=== PATIENT | male | born 1990 | race Caucasian/White ===

== ENCOUNTER 2021-04-15 00:01 | Inpatient (IN) | payer OTHER ==
[~2021-04-15] VITALS: Ht 180.3 cm; Wt 84.5 kg
[2021-04-15] VITALS (28 sets, daily range): BP systolic 54–159; BP diastolic 33–89
[2021-04-15] MEDS ORDERED: NALOXONE HCL 0.4 MG/ML 1ML VIAL IV ONE ×4 (00:15→01:30)
[2021-04-15] MEDS ORDERED: SODIUM CHLORIDE 0.9% 1,000 ML IV ONE (00:45)
[2021-04-15 01:00] LABS: HEMATOCRIT. 50.1 % (42.0-52.0); HEMOGLOBIN. 16.6 g/dL (14.0-18.0); MEAN CORPUSCULAR HEMOGLOBIN 30.5 pg (28.0-32.0); MEAN CORPUSCULAR VOLUME 92.3 fL (80.0-94.0); PLATELET 371 x1000/uL (130-400); RED BLOOD CELL COUNT 5.43 mill/uL (4.7-6.1); RED CELL DISTRIBUTION WIDTH 13.2 % (11.6-14.6)
[2021-04-15] MEDS ORDERED: NALOXONE HCL 1 MG/ML 2ML VIAL IV NR (01:00)
[2021-04-15 01:09] LABS: CHLORIDE 107 mEq/L (98-107)
[2021-04-15 01:13] LABS: ETHANOL BLOOD < 10 mg/dL
[2021-04-15] MEDS ORDERED: DEXTROSE 50% WATER 50ML SYRINGE IV ONE (01:30)
[2021-04-15 02:22] LABS: CLARITY URINE CLOUDY (CLEAR); COLOR URINE YELLOW (YELLOW); KETONES URINE NEGATIVE (NEGATIVE); LEUKOCYTE ESTERASE URINE NEGATIVE (NEGATIVE); NITRITE URINE NEGATIVE (NEGATIVE); OCCULT BLOOD URINE 3+ (NEGATIVE); PROTEIN URINE 3+ (NEGATIVE); SPECIFIC GRAVITY URINE 1.015 (1.005-1.030); UROBILINOGEN URINE 0.2 E.U./dL (0.2-1.0)
[2021-04-15] MEDS ORDERED: ETOMIDATE 2MG/ML 10ML VIAL IV ONE (02:30)
[2021-04-15] MEDS ORDERED: SUCCINYLCHOLINE CHLORIDE 200MG/10ML IV ONE ×2 (02:30→09:00)
[2021-04-15] MEDS ORDERED: PROPOFOL 10MG/ML 100ML 100 ML IV SCH (02:30)
[2021-04-15 02:34] LABS: *AMPHETAMINES SCREEN URINE PRESUMTIVE POSITIVE (NEGATIVE); *BARBITURATES SCREEN URINE NEGATIVE (NEGATIVE); *BENZODIAZEPINES SCREEN URINE NEGATIVE (NEGATIVE); *COCAINE SCREEN URINE NEGATIVE (NEGATIVE); METHADONE URINE SCREEN NEGATIVE (NEGATIVE)
[2021-04-15 02:35] LABS: CANNABINOID URINE SCREEN NEGATIVE (NEGATIVE); OPIATES URINE SCREEN PRESUMTIVE POSITIVE (NEGATIVE); PHENCYCLIDINE URINE SCREEN NEGATIVE (NEGATIVE)
[2021-04-15] MEDS ORDERED: PIPERACILLIN/TAZ 3.375G PREMIX 50 ML IV ONE (02:45)
[2021-04-15] MEDS ORDERED: VANCOMYCIN 1 G PREMIX 200 ML IV SCH (02:45)
[2021-04-15 03:15] LABS: ATYPICAL LYMPHOCYTES 2
[2021-04-15 03:16] LABS: PLATELET ESTIMATE NORMAL
[2021-04-15] MEDS ORDERED: ONDANSETRON HCL 4MG/2ML INJ IV PRN (07:30)
[2021-04-15] MEDS ORDERED: DIPHENHYDRAMINE 50MG/ML VIAL IV PRN (07:30)
[2021-04-15] MEDS ORDERED: IPRATROPIUM/ALBUTEROL 0.5-3(2.5)MG/3ML NEB HHN PRN ×2 (07:30→09:30)
[2021-04-15] MEDS ORDERED: HYDRALAZINE 20MG/ML VIAL IV PRN (07:30)
[2021-04-15] MEDS ORDERED: GUAIFENESIN 200MG/10ML SUGAR FREE UDC PO PRN (07:30)
[2021-04-15] MEDS ORDERED: MAGNESIUM/ALUMINUM HYDROXIDE/SIMETHICONE 30ML UDC PO PRN (07:30)
[2021-04-15] MEDS ORDERED: LORAZEPAM 2MG/ML CPJ IV PRN (07:30)
[2021-04-15] MEDS ORDERED: CLONIDINE 0.1MG TABLET PO PRN (07:30)
[2021-04-15] MEDS ORDERED: DOCUSATE SODIUM 100MG CAPSULE PO PRN (07:30)
[2021-04-15] MEDS ORDERED: ACETAMINOPHEN 325MG TABLET PO PRN (07:30)
[2021-04-15] MEDS ORDERED: PIPERACILLIN/TAZ 3.375G PREMIX 50 ML IV SCH ×2 (08:00→22:00)
[2021-04-15] MEDS: DEXT 5%/0.45% NACL 1000ML 1,000 ML IV SCH ×2 (08:15→18:16)
[2021-04-15 08:45] LABS: BG BASE EXCESS -12.1 mmol/L (-2.0-2.0); BG CARBOXYHEMOGLOBIN 0.3 % (0.5-1.5); BG DEOXYHEMOGLOBIN 3.2 % (0.0-5.0); BG HCO3 ACT 17.2 mmol/L (22.0-26.0); BG METHEMOGLOBIN 0.7 % (0.0-1.5); BG OXYGEN SATURATION 96.8 % (92.0-98.5); BG OXYHEMOGLOBIN 95.8 % (94.0-97.0); BG PCO2 51.1 mmHg (35.0-45.0); BG PH 7.145 (7.350-7.450); BG PO2 92.5 mmHg (75.0-100.0); BG SAMPLE SITE RIGHT BRACHIAL; BG TOTAL HEMOGLOBIN 18.3 g/dL (12.0-18.0); BG VENT MODE VENT - AC
[2021-04-15] MEDS ORDERED: PROPOFOL 10MG/ML 100ML 100 ML IV PRN (09:30)
[2021-04-15] MEDS: ENOXAPARIN 40MG/0.4ML SYR SUBCUT SCH (10:15)
[2021-04-15] MEDS ORDERED: NOREPINEPHRINE 8MG/250ML PMX 250 ML IV ONE ×2 (12:30→12:39)
[2021-04-15 13:05] LABS: BG BASE EXCESS -8.6 mmol/L (-2.0-2.0); BG CARBOXYHEMOGLOBIN 0.2 % (0.5-1.5); BG DEOXYHEMOGLOBIN 0.3 % (0.0-5.0); BG HCO3 ACT 17.3 mmol/L (22.0-26.0); BG METHEMOGLOBIN 0.5 % (0.0-1.5); BG OXYGEN SATURATION 99.7 % (92.0-98.5); BG PCO2 37.8 mmHg (35.0-45.0); BG PH 7.279 (7.350-7.450); BG PO2 289.1 mmHg (75.0-100.0); BG SAMPLE SITE RIGHT RADIAL; BG VENT MODE VENT - AC
[2021-04-15] MEDS ORDERED: PHENYLEPHRINE 50 MG in DEXTROSE 5% WATER 250 ML IV PRN (13:45)
[2021-04-15] MEDS: SODIUM CHLORIDE 0.9% INJ 3ML FLUSH IVF SCH ×2 (14:00→22:00)
[2021-04-15] MEDS: IPRATROPIUM/ALBUTEROL 0.5-3(2.5)MG/3ML NEB HHN SCH ×3 (16:24→21:22)
[2021-04-15] MEDS: PANTOPRAZOLE SODIUM 40 MG/VIAL IV SCH (18:16)
[2021-04-15] MEDS: PIPERACILLIN/TAZOBACTAM 3.375G in DEXT 5% WATER 50ML IV SCH (18:16)
[2021-04-15 19:09] LABS: CREATINE KINASE MB FRACTION 466.8 ng/mL (0.5-3.6)
[2021-04-15] MEDS ORDERED: NOREPINEPHRINE 8 MG in DEXT 5% WATER 242 ML IV PRN (19:30)
[2021-04-15] MEDS ORDERED: NOREPINEPHRINE 8MG/250ML PMX 250 ML IV PRN (19:30)
[2021-04-15] MEDS ORDERED: ACETAMINOPHEN 650MG SUPP PR PRN (19:33)
[2021-04-15] MEDS: PHENYLEPHRINE 100 MG in DEXT 5% WATER 240 ML IV PRN (20:12)
[2021-04-15] MEDS: SODIUM BICARBONATE 100 MEQ in DEXTROSE 5% WATER 1,000 ML IV SCH (22:55)
[2021-04-16] VITALS (84 sets, daily range): BP systolic 87–161; BP diastolic 52–109
[2021-04-16 00:20] LABS: CREATINE KINASE MB FRACTION 160.4 ng/mL (0.5-3.6)
[2021-04-16] MEDS: IPRATROPIUM/ALBUTEROL 0.5-3(2.5)MG/3ML NEB HHN SCH ×6 (00:58→19:57)
[2021-04-16] MEDS ORDERED: IPRATROPIUM/ALBUTEROL 0.5-3(2.5)MG/3ML NEB HHN PRN (01:30)
[2021-04-16] MEDS: PHENYLEPHRINE 100 MG in DEXT 5% WATER 240 ML IV PRN (01:45)
[2021-04-16] MEDS ORDERED: ACETYLCYSTEINE 100MG/ML 10% VIAL 4ML INH SCH (02:00)
[2021-04-16] MEDS: SODIUM CHLORIDE 0.9% INJ 3ML FLUSH IVF SCH ×3 (05:11→21:49)
[2021-04-16] MEDS: PIPERACILLIN/TAZOBACTAM 3.375G in DEXT 5% WATER 50ML IV SCH ×3 (05:11→21:49)
[2021-04-16 05:53] LABS: HEMATOCRIT. 45.5 % (42.0-52.0); HEMOGLOBIN. 15.1 g/dL (14.0-18.0); MEAN CORPUSCULAR VOLUME 90.6 fL (80.0-94.0); MEAN PLATELET VOLUME 8.6 fl (7.4-10.4); PLATELET 244 x1000/uL (130-400); RED BLOOD CELL COUNT 5.02 mill/uL (4.7-6.1); RED CELL DISTRIBUTION WIDTH 13.5 % (11.6-14.6)
[2021-04-16 05:59] LABS: CHLORIDE 113 mEq/L (98-107)
[2021-04-16 06:14] LABS: CREATINE KINASE MB FRACTION 122.7 ng/mL (0.5-3.6)
[2021-04-16 06:20] LABS: HEPATITIS B SURFACE ANTIGEN NEGATIVE
[2021-04-16 06:52] LABS: CREATINE KINASE 10694 IU/L (39-308)
[2021-04-16 07:42] LABS: AMYLASE 1917 IU/L (25-115)
[2021-04-16 08:13] LABS: NUCLEATED RED BLOOD CELLS 1 /100 WBC; PLATELET ESTIMATE NORMAL
[2021-04-16 08:22] LABS: BG BASE EXCESS -7.5 mmol/L (-2.0-2.0); BG CARBOXYHEMOGLOBIN 0.3 % (0.5-1.5); BG DEOXYHEMOGLOBIN 4.4 % (0.0-5.0); BG FRACTION INSPIRED OXYGEN 30; BG METHEMOGLOBIN 0.5 % (0.0-1.5); BG OXYGEN SATURATION 95.6 % (92.0-98.5); BG OXYHEMOGLOBIN 94.8 % (94.0-97.0); BG PCO2 42.2 mmHg (35.0-45.0); BG PH 7.272 (7.350-7.450); BG PO2 77.9 mmHg (75.0-100.0); BG SAMPLE SITE LEFT RADIAL; BG TOTAL HEMOGLOBIN 15.9 g/dL (12.0-18.0); BG TOTAL RESPIRATORY RATE 18 b/min; BG VENT MODE VENT - AC
[2021-04-16] MEDS: PANTOPRAZOLE SODIUM 40 MG/VIAL IV SCH (09:53)
[2021-04-16] MEDS: ENOXAPARIN 40MG/0.4ML SYR SUBCUT SCH (09:54)
[2021-04-16] MEDS: SODIUM BICARBONATE 100 MEQ in DEXTROSE 5% WATER 1,000 ML IV SCH ×2 (11:15→21:30)
[2021-04-16] MEDS ORDERED: FLUMAZENIL 0.1 MG/ML 5ML VIAL IV ONE (14:30)
[2021-04-17] VITALS (83 sets, daily range): BP systolic 82–123; BP diastolic 45–69
[2021-04-17] MEDS: IPRATROPIUM/ALBUTEROL 0.5-3(2.5)MG/3ML NEB HHN SCH ×5 (00:25→16:15)
[2021-04-17] MEDS: PIPERACILLIN/TAZOBACTAM 3.375G in DEXT 5% WATER 50ML IV SCH ×2 (06:00→15:02)
[2021-04-17] MEDS: SODIUM CHLORIDE 0.9% INJ 3ML FLUSH IVF SCH ×2 (06:00→14:04)
[2021-04-17 06:06] LABS: BASOPHILS % 0.1 % (0.0-2.0); EOSINOPHILS % 0.1 % (0.0-5.0); HEMATOCRIT. 42.2 % (42.0-52.0); LYMPHOCYTES % 12.2 % (20.0-50.0); MEAN CORPUSCULAR HEMOGLOBIN 30.2 pg (28.0-32.0); MEAN CORPUSCULAR VOLUME 90.6 fL (80.0-94.0); MEAN PLATELET VOLUME 8.7 fl (7.4-10.4); MONOCYTES % 6.3 % (2.0-8.0); NEUTROPHILS % 81.3 % (40.0-76.0); PLATELET 215 x1000/uL (130-400); RED BLOOD CELL COUNT 4.65 mill/uL (4.7-6.1); RED CELL DISTRIBUTION WIDTH 13.5 % (11.6-14.6)
[2021-04-17] MEDS ORDERED: DEXTROSE 5% WATER 1,000 ML IV SCH (08:15)
[2021-04-17] MEDS: PANTOPRAZOLE SODIUM 40 MG/VIAL IV SCH (10:01)
[2021-04-17] MEDS: PHENYLEPHRINE 100 MG in DEXT 5% WATER 240 ML IV PRN (10:02)
[2021-04-17 10:15] LABS: BG BASE EXCESS 3.1 mmol/L (-2.0-2.0); BG CARBOXYHEMOGLOBIN 0.6 % (0.5-1.5); BG DEOXYHEMOGLOBIN 2.5 % (0.0-5.0); BG FRACTION INSPIRED OXYGEN 30; BG HCO3 ACT 28.7 mmol/L (22.0-26.0); BG METHEMOGLOBIN 0.2 % (0.0-1.5); BG OXYGEN SATURATION 97.5 % (92.0-98.5); BG OXYHEMOGLOBIN 96.7 % (94.0-97.0); BG PCO2 47.8 mmHg (35.0-45.0); BG PH 7.397 (7.350-7.450); BG PO2 97.4 mmHg (75.0-100.0); BG SAMPLE SITE RIGHT RADIAL; BG TOTAL HEMOGLOBIN 14.3 g/dL (12.0-18.0); BG VENT MODE VENT - AC
[2021-04-17 14:13] LABS: BG BASE EXCESS -0.3 mmol/L (-2.0-2.0); BG CARBOXYHEMOGLOBIN 1.2 % (0.5-1.5); BG DEOXYHEMOGLOBIN 0.6 % (0.0-5.0); BG FRACTION INSPIRED OXYGEN 100; BG HCO3 ACT 24.9 mmol/L (22.0-26.0); BG METHEMOGLOBIN 0.2 % (0.0-1.5); BG OXYGEN SATURATION 99.4 % (92.0-98.5); BG PCO2 42.5 mmHg (35.0-45.0); BG PH 7.385 (7.350-7.450); BG PO2 340.6 mmHg (75.0-100.0); BG SAMPLE SITE RIGHT RADIAL; BG TOTAL HEMOGLOBIN 13.9 g/dL (12.0-18.0); BG VENT MODE VENT - AC
[2021-04-17 14:33] LABS: BG CARBOXYHEMOGLOBIN 0.2 % (0.5-1.5); BG DEOXYHEMOGLOBIN 0.5 % (0.0-5.0); BG FRACTION INSPIRED OXYGEN 36; BG HCO3 ACT 33.6 mmol/L (22.0-26.0); BG METHEMOGLOBIN 0.5 % (0.0-1.5); BG OXYGEN SATURATION 99.5 % (92.0-98.5); BG OXYHEMOGLOBIN 98.8 % (94.0-97.0); BG PH 7.225 (7.350-7.450); BG PO2 352.8 mmHg (75.0-100.0); BG TOTAL HEMOGLOBIN 14.7 g/dL (12.0-18.0); BG VENT MODE NASAL CANNULA
== END 2021-04-17 20:36 | disposition home or self-care (01) | DRG 720 ==
LOC: ER 00:01 → EDBD 00:01 → MICUSO 04:42 → ENRESERV 13:45 → CVICU 15:52
PROVIDERS: ADMIT Internal Medicine; ATTEND Internal Medicine
PROC: 5A1945Z Respiratory Ventilation, 24-96 Consecutive Hours (ICD-10-PCS; principal; 2021-04-15)
PROC: 06HY33Z Insertion of Infusion Device into Lower Vein, Percutaneous Approach (ICD-10-PCS; 2021-04-15)
PROC: B54BZZA Ultrasonography of Right Lower Extremity Veins, Guidance (ICD-10-PCS; 2021-04-15)
PROC: 0BH17EZ Insertion of Endotracheal Airway into Trachea, Via Natural or Artificial Opening (ICD-10-PCS; 2021-04-15)
DX: A41.9 Sepsis, unspecified organism (principal); J96.00 Acute respiratory failure, unspecified whether with hypoxia or hypercapnia; N17.0 Acute kidney failure with tubular necrosis; K72.00 Acute and subacute hepatic failure without coma; J69.0 Pneumonitis due to inhalation of food and vomit; I21.4 Non-ST elevation (NSTEMI) myocardial infarction; G92.8 Other toxic encephalopathy; M62.82 Rhabdomyolysis; G93.1 Anoxic brain damage, not elsewhere classified; T50.901A Poisoning by unspecified drugs, medicaments and biological substances, accidental (unintentional), initial encounter; E87.4 Mixed disorder of acid-base balance; Z20.822 Contact with and (suspected) exposure to COVID-19; E16.2 Hypoglycemia, unspecified; F11.10 Opioid abuse, uncomplicated; F15.10 Other stimulant abuse, uncomplicated; B19.20 Unspecified viral hepatitis C without hepatic coma; Y92.89 Other specified places as the place of occurrence of the external cause
CPT/HCPCS: 36415; 36600; 71045; 76700; 78610; 80048; 80053; 80076; 80305; 80307; 80320; 80329; 81003; 82140; 82150; 82248; 82375; 82550; 82553; 82805; 82962; 83735; 83880; 84295; 84443; 84484; 85025; 85379; 86705; 86709; 86803; 87070; 87340; 87426; 93005; 93306; 93970; 94002; 94003; 94640; 95816; 99291; A9512; C9113; J0330; J1650; J2310; J2370; J2543; J2704; J3490; J7030; J7060; J7070; A4315; G0480

== ENCOUNTER 2021-04-17 21:00 | Inpatient (IN) | payer OTHER ==
[~2021-04-17] VITALS: Ht 180.3 cm; Wt 98.0 kg
[2021-04-17 20:40] VITALS: BP 102/53
[2021-04-17] MEDS ORDERED: HYDRALAZINE 20MG/ML VIAL IV PRN (22:00)
[2021-04-17] MEDS ORDERED: NOREPINEPHRINE 8 MG in DEXT 5% WATER 242 ML IV PRN (22:00)
[2021-04-17] MEDS ORDERED: PHENYLEPHRINE 100 MG in DEXT 5% WATER 240 ML IV PRN (22:00)
[2021-04-17] MEDS ORDERED: DEXTROSE 5% WATER 1,000 ML IV ONE (22:00)
[2021-04-17] MEDS ORDERED: PIPERACILLIN/TAZOBACTAM 3.375GM/50ML PREMIX IV SCH (22:00)
[2021-04-17] MEDS: PIPERACILLIN/TAZOBACTAM 3.375G in DEXT 5% WATER 50ML IV SCH ×2 (23:10→23:19)
[2021-04-17 23:42] VITALS: BP 121/66
[2021-04-17 23:45] VITALS: BP 116/62
[2021-04-18] VITALS (91 sets, daily range): BP systolic 90–149; BP diastolic 41–106
[2021-04-18] MEDS: IPRATROPIUM/ALBUTEROL 0.5-3(2.5)MG/3ML NEB HHN SCH ×6 (00:20→20:10)
[2021-04-18] MEDS ORDERED: HETASTARCH/NORMAL SALINE 500 ML PLAST..BAG IV STA (01:20)
[2021-04-18] MEDS ORDERED: SODIUM CHLORIDE 0.9% INJ 3ML FLUSH IVF PRN (01:45)
[2021-04-18 01:48] LABS: BG BASE EXCESS 1.4 mmol/L (-2.0-2.0); BG CARBOXYHEMOGLOBIN 0.4 % (0.5-1.5); BG DEOXYHEMOGLOBIN 3.2 % (0.0-5.0); BG FRACTION INSPIRED OXYGEN 40; BG HCO3 ACT 26.6 mmol/L (22.0-26.0); BG METHEMOGLOBIN 0.2 % (0.0-1.5); BG OXYGEN SATURATION 96.8 % (92.0-98.5); BG OXYHEMOGLOBIN 96.2 % (94.0-97.0); BG PCO2 44.4 mmHg (35.0-45.0); BG PH 7.396 (7.350-7.450); BG PO2 96.1 mmHg (75.0-100.0); BG SAMPLE SITE RIGHT RADIAL; BG TOTAL HEMOGLOBIN 13.7 g/dL (12.0-18.0); BG VENT MODE VENT - AC
[2021-04-18] MEDS ORDERED: SODIUM CHLORIDE 0.9% 1,000 ML IV NR (02:00)
[2021-04-18 02:27] LABS: BASOPHILS % 0.2 % (0.0-2.0); EOSINOPHILS % 0.3 % (0.0-5.0); HEMATOCRIT. 40.5 % (42.0-52.0); HEMOGLOBIN. 13.5 g/dL (14.0-18.0); LYMPHOCYTES % 9.2 % (20.0-50.0); MEAN CORPUSCULAR HEMOGLOBIN 30.7 pg (28.0-32.0); MEAN CORPUSCULAR VOLUME 91.8 fL (80.0-94.0); MEAN PLATELET VOLUME 8.8 fl (7.4-10.4); MONOCYTES % 6.1 % (2.0-8.0); NEUTROPHILS % 84.2 % (40.0-76.0); PLATELET 194 x1000/uL (130-400); RED BLOOD CELL COUNT 4.41 mill/uL (4.7-6.1); RED CELL DISTRIBUTION WIDTH 13.7 % (11.6-14.6)
[2021-04-18] MEDS ORDERED: METHYLPREDNISOLONE SOD SUCC 2,000 MG in DEXT 5% WATER 100 ML IV NR (02:30)
[2021-04-18] MEDS ORDERED: ALBUMIN HUMAN 25GM/500ML (5%) IV NR (02:30)
[2021-04-18 02:33] LABS: CHLORIDE 116 mEq/L (98-107)
[2021-04-18 02:41] LABS: PHOSPHORUS 2.2 mg/dL (2.5-4.9)
[2021-04-18 02:43] LABS: CREATINE KINASE MB FRACTION 12.2 ng/mL (0.5-3.6)
[2021-04-18 02:46] LABS: AMYLASE 378 IU/L (25-115)
[2021-04-18 03:29] LABS: PARTIAL THROMBOPLASTIN TIME 29.2 sec (23.4-31.0); PROTHROMBIN TIME 10.9 sec (9.6-11.0)
[2021-04-18] MEDS: VASOPRESSIN 40 UNIT in SODIUM CHLORIDE 0.9% 98 ML IV PRN ×2 (03:51→17:30)
[2021-04-18] MEDS: PIPERACILLIN/TAZOBACTAM 3.375G in DEXT 5% WATER 50ML IV SCH ×3 (06:42→22:10)
[2021-04-18 07:07] LABS: BG BASE EXCESS 0.8 mmol/L (-2.0-2.0); BG CARBOXYHEMOGLOBIN 0.4 % (0.5-1.5); BG DEOXYHEMOGLOBIN 3.7 % (0.0-5.0); BG FRACTION INSPIRED OXYGEN 40; BG HCO3 ACT 25.6 mmol/L (22.0-26.0); BG METHEMOGLOBIN 0.3 % (0.0-1.5); BG OXYGEN SATURATION 96.3 % (92.0-98.5); BG OXYHEMOGLOBIN 95.6 % (94.0-97.0); BG PCO2 41.4 mmHg (35.0-45.0); BG PH 7.409 (7.350-7.450); BG PO2 84.7 mmHg (75.0-100.0); BG SAMPLE SITE RIGHT RADIAL; BG VENT MODE VENT - APRV
[2021-04-18] MEDS ORDERED: THIAMINE HCL 500 MG in SODIUM CHLORIDE 0.9% 49 ML IV ONE (07:15)
[2021-04-18] MEDS ORDERED: DOBUTAMINE 250MG PREMIX 250 ML IV SCH (07:25)
[2021-04-18] MEDS: INSULIN REGULAR (DRIP) 100 UNITS in SODIUM CHLORIDE 0.9% 99 ML IV SCH ×2 (08:12→17:29)
[2021-04-18] MEDS ORDERED: ENOXAPARIN 40MG/0.4ML SYR SUBCUT SCH (09:00)
[2021-04-18] MEDS ORDERED: PANTOPRAZOLE SODIUM 40 MG/VIAL IV SCH (09:00)
[2021-04-18] MEDS ORDERED: POTASSIUM CHLORIDE IV NR (09:00)
[2021-04-18] MEDS ORDERED: SODIUM CHLORIDE 0.9% IV NR (09:00)
[2021-04-18] MEDS: METHYLPREDNISOLONE SOD SUCC 500 MG in DEXT 5% WATER 100 ML IV SCH ×2 (10:00→19:21)
[2021-04-18] MEDS ORDERED: METHYLPREDNISOLONE SOD SUCC 125 MG/2 ML VIAL IV SCH (11:00)
[2021-04-18 11:45] LABS: HEMOGLOBIN. 11.5 g/dL (14.0-18.0); MEAN CORPUSCULAR HEMOGLOBIN 30.2 pg (28.0-32.0); MEAN CORPUSCULAR VOLUME 91.5 fL (80.0-94.0); PLATELET 162 x1000/uL (130-400); RED BLOOD CELL COUNT 3.83 mill/uL (4.7-6.1); RED CELL DISTRIBUTION WIDTH 13.4 % (11.6-14.6)
[2021-04-18 11:59] LABS: CHLORIDE 110 mEq/L (98-107)
[2021-04-18 12:04] LABS: PHOSPHORUS 3.5 mg/dL (2.5-4.9)
[2021-04-18 12:05] LABS: GAMMA GLUTAMYL TRANSPEPTIDASE 91 IU/L (11-50)
[2021-04-18 12:08] LABS: AMYLASE 233 IU/L (25-115)
[2021-04-18 12:17] LABS: CLARITY URINE CLOUDY (CLEAR); COLOR URINE YELLOW (YELLOW); KETONES URINE TRACE (NEGATIVE); LEUKOCYTE ESTERASE URINE NEGATIVE (NEGATIVE); NITRITE URINE NEGATIVE (NEGATIVE); OCCULT BLOOD URINE NEGATIVE (NEGATIVE); PH URINE 5.5 (4.5-8.0); PROTEIN URINE 1+ (NEGATIVE); SPECIFIC GRAVITY URINE 1.027 (1.005-1.030)
[2021-04-18 12:25] LABS: CREATINE KINASE 1518 IU/L (39-308); PLATELET ESTIMATE NORMAL
[2021-04-18] MEDS ORDERED: LIDOCAINE HCL 1% 10 MG/ML 10ML VIAL ONE (12:54)
[2021-04-18] MEDS ORDERED: IODIXANOL 320MG/ML 100 ML BOTTLE IV ONE (12:54)
[2021-04-18] MEDS ORDERED: HEPARIN SODIUM 1,000 UNIT/1ML VIAL IV ONE (13:23)
[2021-04-18] MEDS ORDERED: ACETAMINOPHEN 325MG TABLET PO PRN (13:45)
[2021-04-18] MEDS ORDERED: ATROPINE SULFATE 1MG/10ML SYR IV PRN (13:45)
[2021-04-18 14:35] LABS: BG BASE EXCESS -1.1 mmol/L (-2.0-2.0); BG CARBOXYHEMOGLOBIN 0.3 % (0.5-1.5); BG HCO3 ACT 23.8 mmol/L (22.0-26.0); BG METHEMOGLOBIN 0.3 % (0.0-1.5); BG OXYHEMOGLOBIN 96.4 % (94.0-97.0); BG PCO2 40.5 mmHg (35.0-45.0); BG PH 7.387 (7.350-7.450); BG PO2 98.6 mmHg (75.0-100.0); BG SAMPLE SITE ALINE; BG TOTAL HEMOGLOBIN 11.8 g/dL (12.0-18.0); BG VENT MODE VENT - APRV
[2021-04-18] MEDS ORDERED: FUROSEMIDE 40MG/4ML VIAL IVP NR (15:00)
[2021-04-18 18:26] LABS: BG BASE EXCESS -1.4 mmol/L (-2.0-2.0); BG CARBOXYHEMOGLOBIN 0.3 % (0.5-1.5); BG DEOXYHEMOGLOBIN 2.8 % (0.0-5.0); BG HCO3 ACT 23.6 mmol/L (22.0-26.0); BG METHEMOGLOBIN 0.5 % (0.0-1.5); BG OXYGEN SATURATION 97.2 % (92.0-98.5); BG OXYHEMOGLOBIN 96.4 % (94.0-97.0); BG PCO2 40.8 mmHg (35.0-45.0); BG PH 7.381 (7.350-7.450); BG PO2 103.1 mmHg (75.0-100.0); BG SAMPLE SITE ALINE; BG TOTAL RESPIRATORY RATE 24 b/min; BG VENT MODE VENT - APRV
[2021-04-18 18:41] LABS: CHLORIDE 109 mEq/L (98-107)
[2021-04-18 18:42] LABS: HEMATOCRIT. 33.8 % (42.0-52.0); HEMOGLOBIN. 11.2 g/dL (14.0-18.0); MEAN CORPUSCULAR HEMOGLOBIN 29.9 pg (28.0-32.0); MEAN CORPUSCULAR VOLUME 90.5 fL (80.0-94.0); MEAN PLATELET VOLUME 8.7 fl (7.4-10.4); PLATELET 162 x1000/uL (130-400); RED BLOOD CELL COUNT 3.73 mill/uL (4.7-6.1); RED CELL DISTRIBUTION WIDTH 13.5 % (11.6-14.6)
[2021-04-18 18:44] LABS: AMYLASE 183 IU/L (25-115)
[2021-04-18 18:46] LABS: CLARITY URINE CLOUDY (CLEAR); COLOR URINE YELLOW (YELLOW); KETONES URINE NEGATIVE (NEGATIVE); LEUKOCYTE ESTERASE URINE NEGATIVE (NEGATIVE); NITRITE URINE NEGATIVE (NEGATIVE); OCCULT BLOOD URINE NEGATIVE (NEGATIVE); PROTEIN URINE NEGATIVE (NEGATIVE); SPECIFIC GRAVITY URINE 1.016 (1.005-1.030); UROBILINOGEN URINE 0.2 E.U./dL (0.2-1.0)
[2021-04-18 18:46] LABS: PHOSPHORUS 4.4 mg/dL (2.5-4.9)
[2021-04-18 18:50] LABS: CREATINE KINASE MB FRACTION 6.2 ng/mL (0.5-3.6)
[2021-04-18 19:01] LABS: CREATINE KINASE 1116 IU/L (39-308)
[2021-04-18 20:10] LABS: PLATELET ESTIMATE NORMAL
[2021-04-18] MEDS: FUROSEMIDE 40MG/4ML VIAL IVP SCH (20:40)
[2021-04-18] MEDS ORDERED: KCL 20MEQ/100ML PREMIX 100 ML IV NR (23:00)
[2021-04-19] VITALS (15 sets, daily range): BP systolic 91–118; BP diastolic 52–78
[2021-04-19] MEDS ORDERED: THIAMINE HCL 100 MG in SODIUM CHLORIDE 0.9% 49 ML IV NR
[2021-04-19] MEDS: FUROSEMIDE 40MG/4ML VIAL IVP SCH (00:20)
[2021-04-19] MEDS: IPRATROPIUM/ALBUTEROL 0.5-3(2.5)MG/3ML NEB HHN SCH (00:41)
[2021-04-19 01:00] LABS: HEMATOCRIT. 32.3 % (42.0-52.0); HEMOGLOBIN. 10.8 g/dL (14.0-18.0); MEAN CORPUSCULAR HEMOGLOBIN 30.2 pg (28.0-32.0); MEAN CORPUSCULAR VOLUME 90.7 fL (80.0-94.0); MEAN PLATELET VOLUME 9.1 fl (7.4-10.4); PLATELET 165 x1000/uL (130-400); RED BLOOD CELL COUNT 3.56 mill/uL (4.7-6.1); RED CELL DISTRIBUTION WIDTH 13.1 % (11.6-14.6)
[2021-04-19 01:02] LABS: CHLORIDE 109 mEq/L (98-107)
[2021-04-19 01:03] LABS: BG BASE EXCESS 1.8 mmol/L (-2.0-2.0); BG CARBOXYHEMOGLOBIN 0.3 % (0.5-1.5); BG DEOXYHEMOGLOBIN 9.7 % (0.0-5.0); BG FRACTION INSPIRED OXYGEN 40; BG HCO3 ACT 28.3 mmol/L (22.0-26.0); BG METHEMOGLOBIN 0.3 % (0.0-1.5); BG OXYGEN SATURATION 90.2 % (92.0-98.5); BG OXYHEMOGLOBIN 89.7 % (94.0-97.0); BG PCO2 53.1 mmHg (35.0-45.0); BG PH 7.344 (7.350-7.450); BG PO2 62.4 mmHg (75.0-100.0); BG SAMPLE SITE ALINE; BG TOTAL HEMOGLOBIN 11.7 g/dL (12.0-18.0); BG VENT MODE VENT - APRV
[2021-04-19 01:06] LABS: AMYLASE 142 IU/L (25-115)
[2021-04-19 01:08] LABS: PHOSPHORUS 5.3 mg/dL (2.5-4.9)
[2021-04-19 01:11] LABS: CREATINE KINASE 762 IU/L (39-308)
[2021-04-19 02:16] LABS: PLATELET ESTIMATE NORMAL
== END 2021-04-19 04:15 | DRG 52 ==
LOC: CVICU 21:00
PROVIDERS: ADMIT Internal Medicine
PROC: 5A1945Z Respiratory Ventilation, 24-96 Consecutive Hours (ICD-10-PCS; 2021-04-17)
PROC: 0BH17EZ Insertion of Endotracheal Airway into Trachea, Via Natural or Artificial Opening (ICD-10-PCS; 2021-04-17)
PROC: 4A023N8 Measurement of Cardiac Sampling and Pressure, Bilateral, Percutaneous Approach (ICD-10-PCS; principal; 2021-04-18)
PROC: B211YZZ Fluoroscopy of Multiple Coronary Arteries using Other Contrast (ICD-10-PCS; 2021-04-18)
PROC: B215YZZ Fluoroscopy of Left Heart using Other Contrast (ICD-10-PCS; 2021-04-18)
PROC: 03HY32Z Insertion of Monitoring Device into Upper Artery, Percutaneous Approach (ICD-10-PCS; 2021-04-18)
PROC: 4A133B1 Monitoring of Arterial Pressure, Peripheral, Percutaneous Approach (ICD-10-PCS; 2021-04-18)
PROC: 4A133J1 Monitoring of Arterial Pulse, Peripheral, Percutaneous Approach (ICD-10-PCS; 2021-04-18)
DX: J96.00 Acute respiratory failure, unspecified whether with hypoxia or hypercapnia
CPT/HCPCS: 36415; 36600; 71045; 80053; 80076; 81003; 82150; 82248; 82375; 82550; 82553; 82805; 82962; 82977; 83605; 83615; 83735; 83937; 84100; 84484; 85025; 86850; 86900; 87070; 93005; 93306; 93451; 93458; 93460; C1726; C1769; C1887; C1893; C9113; J1250; J1644; J1815; J1940; J2543; J2930; J3411; J3480; J3490; J7030; J7040; J7050; J7060; J7070; P9041; Q9967